=== PATIENT | female | born 1985 | race Two or more races ===

== ENCOUNTER 2024-08-14 10:51 | Emergency (ER) | payer MEDICAID, SELFPAY ==
[2024-08-14 10:54] VITALS: BP 168/115; PULSE 105; RESP 16; TEMP 36.7; O2SAT 99; BMI 33.6
--- NOTE | 2024-08-14 11:23 | EDNOTE_ITS ---
ED Medical Clearance RME/HPI General Stated complaint: MEDICAL CLEARANCE Time Seen by Provider: 08/14/24 10:55 Arrival date/time: 08/14/24 10:51 RME / HPI RME / HPI Narrative: DR. ROGERS MAIN ED EVALUATION: 39 year female presents to the Emergency Department brought in by police as a medical clearance. She reported to the police chief deputy that she used methamphetamine. Patient is asymptomatic. Vital signs stable. Requesting A1C and complete blood work as part of a regular physical. Advised patient to follow up with her primary care provider for these tests if needed. Review of Systems Review of Systems Systems Reviewed: All systems reviewed, normal except as documented Narrative Review of Systems: GEN: No fever, no chills, no weight loss EYES: No discharge, no visual changes, no pain HEENT: No ear pain, no congestion, no sore throat PULM: No shortness of breath, no cough, no congestion CV: No chest pain, no dyspnea on exertion, no palpitations GI: No nausea, no vomiting, no diarrhea, no pain, no constipation : No frequency, no urgency and no dysuria MUSC/SKEL: No joint pain, no back pain SKIN: No rash PSYCH: No hallucinations, no depression HEME/LYMPH: No easy bleeding or bruising tendencies NEURO: No weakness, no headache Past Medical History Past Medical History CARDIAC: Negative Congestive Heart Failure RESPIRATORY: Negative Chronic Obstructive Pulmonary Disease (COPD) GENITOURINARY: Negative Renal Disease ENDOCRINE: Negative Diabetes Mellitus Type 1 or Diabetes Mellitus Type 2 Social History SMOKING STATUS: Current every day smoker SUBSTANCE USE: does not use ALCOHOL: Never ED Exam Narrative Physical exam: GENERAL APPEARANCE:? alert and oriented x 4, well-developed, well-nourished, no acute distress HEENT: normocephalic, atraumatic NECK: supple LUNGS: no respiratory distress, normal effort HEART: good peripheral perfusion ABDOMEN: non distended EXTREMITIES:? atraumatic NEUROLOGIC: awake; alert and oriented x4; cranial nerves II-XII grossly intact PSYCHIATRIC:? appropriate mood and affect SKIN: warm, dry, normal color; no rashes Course Quality Measures none Vital Signs Vital signs: Vital Signs Temperature 98.1 F 08/14/24 10:54 Pulse Rate 105 H 08/14/24 10:54 Respiratory Rate 16 08/14/24 10:54 Blood Pressure 168/115 H 08/14/24 10:54 Pulse Oximetry (%) 99 08/14/24 10:54 Oxygen Delivery Method Room Air 08/14/24 10:54 Medical Clearance MDM Narrative MDM Narrative:: I, Ele Hines, am scribing for and in the presence of Dr. Rogers. Patient data External records reviewed:: [facility] previous records (Reviewed last ED visit dated 09/17/23, discharged with the following: New onset seizure) Clinical information provided by:: patient and law enforcement Social determinants that could affect healthcare access:: substance use (methamphetamine abuse) Patient has the following chronic illnesses:: Denies any PMHx, surgeries, daily medications, or known allergies. How is presenting disease/condition affected by chronic disease/condition?: no chronic disease Evaluation data The following diagnostics were reviewed and interpreted by me:: other (specify) (none) Lab and/or radiology exams considered but not ordered:: none Interpretation Summary: n/a Medications / Prescriptions Medications or Prescriptions considered but not ordered:: none Medication administrations:: none Consultations Consultation(s) initiated? (list below): No Diagnosis Medical Clearance Differential Diagnosis: other (medical clearance, methamphetamine abuse, elevated blood pressure) Most likely diagnosis given after review of the tests above:: Medical clearance for incarceration Elevated blood pressure reading Methamphetamine abuse Admission Indicated Admission indicated?: not indicated Admission Request Was there a request for admission?: No Disposition Plan Disposition Plan: Discharge Discharge Attestation Discharge Attestation: The patient and all family members were given an opportunity to ask questions and understood the discharge instructions. Discharge instructions specifically effects, indications for sooner follow up or return to the emergency department, and the expected course of current diagnosis. Patient condition: Stable Discharge Plan Plan Patient Disposition: HOME (Self Care) Problem List Clinical Impression: Medical clearance for incarceration, Elevated blood pressure reading, Methamp hetamine abuse Patient/Caregiver Discharge Instructions Education Materials: Understanding Methamphetamine ..., ED High Blood Pressure ... Print Language: Icelandic Stand Alone Forms: Letty Award Info., Patient Portal Info Letter
[2024-08-14 11:34] VITALS: BP 156/106; PULSE 102; RESP 15; TEMP 36.7; O2SAT 99
== END 2024-08-14 11:47 ==
LOC: SERX 11:37
PROVIDERS: Emergency Provider Emergency Medicine
DX: Z02.89 Encounter for other administrative examinations (principal); F15.10 Other stimulant abuse, uncomplicated; R03.0 Elevated blood-pressure reading, without diagnosis of hypertension
CPT/HCPCS: 99281